=== PATIENT | female | born 1945 | race Caucasian/White ===

== ENCOUNTER 2016-11-02 10:01 | Emergency (ER) | payer MEDICARE, OTHER ==
[2016-11-02] MEDS ORDERED: HYDROMORPHONE HCL 1 MG/ML SYRINGE ONE (10:22)
--- NOTE | 2016-11-02 11:06 | RAD ---
LUMBAR SPINE ROUTINE 2 3 VWS COMPARISON: None. HISTORY: Patient slipped on icy steps at home and now has low back pain. Initial encounter. FINDINGS: Views: Lumbar spine AP and lateral. AP L5-S1 spot. Vertebral alignment: 63 degrees dextroscoliosis of the lumbar spine and lower thoracic spine. Vertebral bodies: No acute finding. Interbody fusion with bone from T11 through L5 and with hardware including pedicle screws on the right side from T11 through L3. The connecting sanket between L2 and L3 is broken. Intervertebral discs: Severe narrowing throughout the lumbar and lower thoracic spine. Pedicles: Normal. Facet joints and posterior arches: Severe facet joint narrowing and sclerosis throughout the lumbar spine. Sacroiliac joints: Normal. Soft tissues: In the right side of the pelvis, 5.8 x 3.0 cm cloudlike calcification. On the lateral view, superimposed on the L2 and L3 vertebra are multiple surgical clips. IMPRESSION: 1. No acute finding. 2. 63 degrees dextroscoliosis of the lumbar spine and lower thoracic spine with both osseous and hardware fusion from T11 through L3 and osseous fusion in the lower lumbar spine. Hardware fusion on the right from T11 through L3. Broken connecting sanket at L2-3. 3. Multilevel severe facet osteoarthritis or ankylosis throughout the lumbar spine. Next number in the right lower quadrant of the pelvis, 5.8 x 3.0 cm calcified soft tissue structure, possibly a uterine leiomyoma.
--- NOTE | 2016-11-02 11:09 | RAD ---
SHOULDER-RIGHT 2 OR MORE VIEWS COMPARISON: None. HISTORY: Patient slipped on ice, landing on her right shoulder. Initial encounter. FINDINGS: Views: Right shoulder internal rotation, external rotation, and scapular Y Bones: Transverse fracture through the proximal metaphysis of the right humerus with medial impaction, varus angulation, and posterior rotation of the humeral head fragment in relation to the shaft. Joints: Normal glenohumeral joint and acromioclavicular joint. Soft tissues: Normal. IMPRESSION: 1. A displaced two-part fracture of the proximal right humerus surgical neck with medial impaction.
[2016-11-02] MEDS ORDERED: ONDANSETRON 4 MG ODT TAB ONE (12:33)
== END 2016-11-02 13:17 | disposition home or self-care (01) ==
LOC: ED 10:01
DX: S42.211A Unspecified displaced fracture of surgical neck of right humerus, initial encounter for closed fracture (principal); W00.1XXA Fall from stairs and steps due to ice and snow, initial encounter; Y92.9 Unspecified place or not applicable
CPT/HCPCS: 72100; 73030; 99284 ×2; 96374; J1170; A9270